=== PATIENT | male | born 1985 | race Caucasian/White ===

== ENCOUNTER 2024-01-09 09:38 | Emergency (ER) | payer OTHER ==
[~2024-01-09] VITALS: Ht 165.1 cm; Wt 88.5 kg
[2024-01-09 09:50] VITALS: BP 119/69; PULSE 78; RESP 16; TEMP 97.5; O2SAT 96
[2024-01-09] MEDS ORDERED: BROM118S70 PO (10:53)
[2024-01-09] MEDS ORDERED: IBUP-2213 PO (10:53)
== END 2024-01-09 11:08 | disposition home or self-care (01) ==
LOC: MED 09:38
DX: J32.9 Chronic sinusitis, unspecified (principal); Z79.899 Other long term (current) drug therapy
CPT/HCPCS: 99282